=== PATIENT | male | born 1980 | race Caucasian/White ===

== ENCOUNTER 2017-07-12 09:48 | Emergency (ER) | payer OTHER ==
[~2017-07-12] VITALS: Ht 193 cm; Wt 110.0 kg
[~2017-07-12 09:48] MED LIST: ACET-1256 PO; PRLSR20 PO; Proair HFA INH; SNG10 PO
[2017-07-12 09:53] VITALS: TEMP 36.7; Ht 193 cm; Wt 110.0 kg
[2017-07-12] MEDS ORDERED: ACETAMINOPHEN 500 MG TAB PO STA (10:05)
[2017-07-12] MEDS ORDERED: LIDODERM (LIDOCAINE) PATCH 5% TD STA (10:05)
--- NOTE | 2017-07-12 10:19 | EMERGENCY ROOM VISIT NOTE ---
History Report prepared by Dianaibcate: Chris Morse Under the Supervision of: Dr. Dani Jones M.D. First contact with patient: 10:00 Chief Complaint: SHOULDER PAIN Stated Complaint: LEFT SHOULDER BLADE PAIN History of Present Illness The patient is a 37 year old male who presents to the Emergency Room with complaints of constant left shoulder blade pain for one week [employer]. The patient notes the pain worsens with movement. He has taken Tylenol for the pain, which has provided mild relief. He currently rates his pain a 7/10 in severity. He denies any recent injuries, fevers, chills, cough, congestion, nausea, vomiting , shortness of breath, and chest pain. He took Tylenol 12 hours ago. Source of History: patient Onset: one week [employer] Position: shoulder (left) Symptom Intensity: 7/10 Quality: other (shoulder blade pain) Timing: constant Modifying Factors (Relieving): tylenol Associated Symptoms: No fevers, No chills, No cough, No chest pain, No SOB, No nausea, No vomiting Note: He notes left shoulder blade pain. He denies any recent injuries and congestion. Review of Systems See HPI for pertinent positives and negatives. A total of ten systems were reviewed and were otherwise negative. Past Medical & Surgical No pertinent past medical history or past surgical history reported. Family History No pertinent family history reported. Social History Smoking Status: Never Smoker Alcohol Use: none Drug Use: none Marital Status: Housing Status: lives with family Occupation Status: employed Current/Historical Medications Scheduled Cetirizine Hcl (Zyrtec), 10 MG PO DAILY Montelukast Sod (Montelukast Sodium), 10 MG PO DAILY Scheduled PRN Lidocaine (Lidoderm Patch 5%), 1 PATCH TD DAILY PRN for Pain Allergies Coded Allergies: Penicillins (Verified Allergy, Intermediate, RASH, 07/12/17) Aspirin (Verified Adverse Reaction, Unknown, Bleeding, 07/12/17) Physical Exam Vital Signs Date Time Temp Pulse Resp B/P (MAP) Pulse Ox O2 Delivery O2 Flow Rate FiO2 07/12/17 10:58 82 16 132/79 96 07/12/17 09:53 36.7 75 18 133/92 95 Room Air Physical Exam GENERAL: Awake, alert, well-appearing, in no distress HENT: Normocephalic, atraumatic. Oropharynx unremarkable. EYES: Normal conjunctiva. Sclera non-icteric. NECK: Supple. No nuchal rigidity. FROM. No JVD. RESPIRATORY: Clear to auscultation. CARDIAC: Regular rate, normal rhythm. Extremities warm and well perfused. Pulses equal. ABDOMEN: Soft, non-distended. No tenderness to palpation. No rebound or guarding. No masses. RECTAL: Deferred. MUSCULOSKELETAL: Chest examination reveals no tenderness. The back is symmetrical on inspection without obvious abnormality. There is no CVA tenderness to palpation. No joint edema. Mild tenderness to lateral aspect of left scapula with palpable muscle spasm extending to left deltoid. FROM actively and passively. LOWER EXTREMITIES: Calves are equal size bilaterally and non-tender. No edema. No discoloration. NEURO: Normal sensorium. No sensory or motor deficits noted. SKIN: No rash or jaundice noted. Medical Decision & Procedures ER Provider Diagnostic Interpretation: Radiology results as stated below per my review and radiologist interpretation: L SCAPULA HISTORY: 37 years-old Male pain acute left shoulder pain without reported trauma COMPARISON: None available TECHNIQUE: 2 views of the left scapula FINDINGS: No acute fracture or dislocation. Mild degenerative changes of the left AC joint. Imaged lung dalton appear clear. No opaque foreign body. IMPRESSION: No acute fracture or dislocation. The above report was generated using voice recognition software. It may contain grammatical, syntax or spelling errors. Electronically signed by: Leno Grimm M.D. 07/12/2017 10:36 AM Dictated Date/Time: 07/12/2017 10:35 AM Medications Administered Medications (Trade) Dose Ordered Sig/Rene Route Start Time Stop Time Status Last Admin Dose Admin Acetaminophen (Tylenol Tab) 1,000 mg NOW STAT PO 07/12/17 10:05 07/12/17 10:10 DC 07/12/17 10:30 1,000 MG Lidocaine (Lidoderm Patch 5%) 1 patch NOW STAT TD 07/12/17 10:05 07/12/17 10:10 DC 07/12/17 10:30 1 PATCH ED Course 1002: The patient was evaluated in room A12. A complete history and physical exam was performed. 1049: I reassessed the patient at this time. He is feeling better and resting comfortably. I discussed the results and treatment plan with the patient. I answered all pertaining questions that he had. He expressed understanding and verbalized agreement. The patient will be discharged home. Medical Decision I reviewed the patient's past medical history, medications, and the nursing notes as described above. The patient's presentation and history were concerning for fracture, dislocation , musculoskeletal strain, and ligamentous injury. The patient is a 37-year-old gentleman who presents [facility] department with right scapular pain per hpi. On arrival patient is well-appearing, afebrile with stable vital signs. On exam the patient has mild tenderness to the lateral aspect of the left scapula with palpable muscle spasm extending to the left deltoid. Full range of motion intact. PMS intact. X-ray unremarkable. It is most consistent with muscular strain. Plan for analgesia and PCP follow-up. Findings and plan for follow-up reviewed with patient. Patient agreeable and d/c 'd per discharge instructions. Impression Primary Impression: Pain of left scapula Additional Impression: Muscle strain Scribe Attestation The scribe's documentation has been prepared under my direction and personally reviewed by me in its entirety. I confirm that the note above accurately reflects all work, treatment, procedures, and medical decision making performed by me. Departure Information Dispostion Home / Self-Care Prescriptions Lidocaine (Lidoderm Patch 5%) 1 Ea Tdsy 1 PATCH TD DAILY Y for Pain for 7 Days, #7 PATCH 12 hours on and 12 hours off. Prov: Dani Jones M.D. 07/12/17 Referrals Christiano Lazcano M.D. (PCP) Forms HOME CARE DOCUMENTATION FORM, IMPORTANT VISIT INFORMATION Patient Instructions ED Muscle Aching, ED Spasm Muscle, My [facility] Additional Instructions Please follow up with your primary care physician in the next 1-3 days for re- evaluation. You likely have a muscle strain. Otherwise, your exam and xray did not show signs of an emergent condition at this time. Acetaminophen and lidoderm patch for pain as needed. Heating pad for 20 minute intervals throughout the day for muscle relaxation and additional pain relief. Return to the emergency department for worsening symptoms as described in the accompanying instructions. Problem Qualifiers
[2017-07-12] MEDS ORDERED: CETI10TA10 PO (10:34)
--- NOTE | 2017-07-12 10:38 | DIAGNOSTIC IMAGING REPORT ---
L SCAPULA HISTORY: 37 years-old Male pain acute left shoulder pain without reported trauma COMPARISON: None available TECHNIQUE: 2 views of the left scapula FINDINGS: No acute fracture or dislocation. Mild degenerative changes of the left AC joint. Imaged lung dalton appear clear. No opaque foreign body. IMPRESSION: No acute fracture or dislocation. The above report was generated using voice recognition software. It may contain grammatical, syntax or spelling errors. Electronically signed by: Leno Grimm M.D. 07/12/2017 10:36 AM Dictated Date/Time: 07/12/2017 10:35 AM
[2017-07-12] MEDS ORDERED: NF656 TD (10:49)
[2017-07-12 10:58] VITALS: BP 132/79; PULSE 82; O2SAT 96
== END 2017-07-12 10:59 | disposition home or self-care (01) ==
LOC: C.EDB 09:50 → C.EDA 10:59
DX: M19.012 Primary osteoarthritis, left shoulder (principal); S46.912A Strain of unspecified muscle, fascia and tendon at shoulder and upper arm level, left arm, initial encounter; X58.XXXA Exposure to other specified factors, initial encounter

== ENCOUNTER 2017-10-13 16:15 | Emergency (ER) | payer OTHER ==
[~2017-10-13] VITALS: Ht 194.3 cm; Wt 110.5 kg
[~2017-10-13 16:15] MED LIST changes: -ACET-1256 PO; +CETI10TA10 PO; +NF656 TD; -PRLSR20 PO; -Proair HFA INH; -SNG10 PO
[2017-10-13 16:33] VITALS: TEMP 36.9; Ht 194.3 cm; Wt 110.5 kg
[2017-10-13] MEDS ORDERED: OPTIRAY 320 IV PRN (18:15)
[2017-10-13] MEDS ORDERED: VNTHFA/IN INH (18:31)
[2017-10-13] MEDS ORDERED: ACET-1256 PO (18:31)
[2017-10-13 19:06] LABS: BASO % 0.5 %; BASO ABS # 0.04 K/uL (0-0.2); EOS % 1.7 %; EOS ABS # 0.14 K/uL (0-0.5); HEMOGLOBIN 13.6 g/dL (14.0-18.0); IG# 0.01 K/uL (0.00-0.02); LYMPH % 42.3 %; LYMPH ABS # 3.48 K/uL (1.2-3.4); MEAN CELL VOLUME 90.1 fL (80-100); MEAN CORPUSCULAR HEMOGLOBIN 30.6 pg (25-34); MEAN PLATELET VOLUME 9.6 fL (7.4-10.4); MONO % 8.2 %; MONO ABS # 0.67 K/uL (0.11-0.59); NEUT % 47.2 %; NEUT ABS # 3.88 K/uL (1.4-6.5); PLATELET COUNT 176 K/uL (130-400); RED CELL DISTRIBUTION WIDTH CV 13.7 % (11.5-14.5); WHITE BLOOD COUNT 8.22 K/uL (4.8-10.8)
[2017-10-13 19:33] LABS: ALBUMIN 4.1 gm/dl (3.4-5.0); ALT/SGPT 23 U/L (12-78); BLOOD UREA NITROGEN 16 mg/dl (7-18); CARBON DIOXIDE 26 mmol/L (21-32); CREATININE 0.98 mg/dl (0.60-1.40); GLUCOSE 84 mg/dl (70-99); LIPASE 145 U/L (73-393); POTASSIUM 3.8 mmol/L (3.5-5.1); SODIUM 139 mmol/L (136-145)
[2017-10-13 19:36] LABS: ALKALINE PHOSPHATASE 65 U/L (45-117); AST/SGOT 17 U/L (15-37); TOTAL PROTEIN 7.7 gm/dl (6.4-8.2)
--- NOTE | 2017-10-13 20:24 | DIAGNOSTIC IMAGING REPORT ---
CT OF THE ABDOMEN AND PELVIS WITH CONTRAST CLINICAL HISTORY: Perirectal erythema and pain. COMPARISON STUDY: None. TECHNIQUE: Following IV administration of 116 mL of Optiray-320, axial images of the abdomen and pelvis were obtained from the lung bases to the proximal femurs. Images were reviewed in the axial, sagittal, and coronal planes. IV contrast was administered without complication. A dose lowering technique was utilized adhering to the principles of ALARA. CT DOSE: 531.96 mGy.cm FINDINGS: A subcentimeter hypodense right hepatic dome lesion is too small characterize but is likely benign. The spleen, adrenal glands, left kidney and pancreas are normal. A few right renal calculi measure up to 4 mm. There are no ureteral calculi and there is no hydronephrosis. A few nodular densities within the right lower lobe measure up to 5 mm and are shown on image 18 of 531. There is no evidence for a bowel obstruction. Caliber and wall thickness of small and large bowel are normal. The appendix is normal. There is no perirectal or perianal abscess. There is no adjacent infiltration. Note is made of a 1.2 x 0.5 cm cystic midline focus with thin the prostate gland. No suspicious osseous lesions are present. IMPRESSION: 1. No acute process within the abdomen or pelvis. 2. No perirectal/perianal abscess. 3. Right-sided nephrolithiasis. No ureteral calculi or hydronephrosis. 4. 1.2 x 0.5 cm cystic midline focus within the prostate gland which is nonspecific but may reflect a prostatic utricle cyst and is of doubtful significance. Electronically signed by: Rodney Baer M.D. 10/13/2017 8:22 PM Dictated Date/Time: 10/13/2017 8:08 PM
[2017-10-13] MEDS ORDERED: MAGNESIUM CITRATE 296 ML/BTL PO ONE (21:15)
[2017-10-13 21:17] VITALS: BP 140/87; PULSE 71; O2SAT 98
--- NOTE | 2017-10-13 21:18 | EMERGENCY ROOM VISIT NOTE ---
History First contact with patient: 17:55 Chief Complaint: CONSTIPATION Stated Complaint: CANT URINATE Nursing Triage Summary: Pt states he has a painful hemorroid, pain started last night, unable to have a BM due to the pain. History of Present Illness The patient is a 37 year old male who presents to the Emergency Room with complaints of a painful hemorrhoid and inability to have bowel movements because of the pain. The patient believes that he has not had a bowel movement for the past week. He has not tried any OTC medications or stool softeners. The patient reports a prior history of hemorrhoids. He has had an upper endoscopy, but never had a colonoscopy performed. His family doctor suggested that he have one performed, but the patient has not schedule an appointment with gastroenterology. The patient currently denies any difficulty with urination, bloody stools, significant abdominal pain, fevers or chills. He rates his discomfort a 6 out of 10 on my exam. Review of Systems HEENT: Denies dizziness, visual problems, hearing loss, tinnitus. Denies difficulty swallowing or oral lesions. PULMONARY: Denies cough, shortness of breath, sputum production or hemoptysis. CARDIOVASCULAR: Denies chest pain, palpitations, dyspnea on exertion, orthopnea or peripheral edema. GASTROINTESTINAL: Denies diarrhea, nausea, vomiting, or significant abdominal pain. Patient does report a prior history of hemorrhoids. GENITOURINARY: Denies dysuria, frequency, urgency or nocturia. NEUROLOGIC: Denies history of epilepsy, CVA, TIA or chronic headaches. MUSCULOSKELETAL: Denies history of joint tenderness/swelling. SKIN: Denies rashes or lesions. PSYCHIATRIC: Denies history of depression or mental illness. ENDOCRINE: Denies history of diabetes or thyroid disorders. Past Medical/Surgical History Medical Problems: (1) No significant past medical history Surgical Problems: (1) No history of previous surgery Family History Unremarkable Social History Smoking Status: Never Smoker Alcohol Use: none Drug Use: none Marital Status: Housing Status: lives with family Occupation Status: employed Current/Historical Medications Scheduled Cetirizine Hcl (Zyrtec), 10 MG PO DAILY Montelukast Sod (Montelukast Sodium), 10 MG PO DAILY Scheduled PRN Acetaminophen (Tylenol), 1,000 MG PO Q6H PRN for Pain Albuterol Hfa (Ventolin Hfa), 2 PUFFS INH Q4H PRN for Cough/SOB/Wheeze Physical Exam Vital Signs Date Time Temp Pulse Resp B/P (MAP) Pulse Ox O2 Delivery O2 Flow Rate FiO2 10/13/17 20:36 68 20 136/94 97 Room Air 10/13/17 18:42 74 18 128/92 96 Room Air 10/13/17 16:33 36.9 85 18 150/85 97 Room Air Physical Exam CONSTITUTIONAL: Healthy and well nourished. Alert and oriented X 3 with positive affect. Patient does not appear in any acute distress on my exam. HEENT: Normocephalic, atraumatic. Pupils equal, round and reactive. No scleral icterus or conjunctival pallor. NECK: Full active range of motion without discomfort. No JVD or carotid bruits. RESPIRATORY: Clear to auscultation bilaterally with no wheezing, crackles, rhonchi or stridor. CARDIOVASCULAR: Regular rate and rhythm with no murmurs, rubs or gallops. GASTROINTESTINAL: Bowel sounds present in all quadrants. Abdomen is soft and nontender to palpation. Examination of the rectum shows a posterior external hemorrhoid that is flaccid and normal skin colored. There is no perianal erythema, but the patient does have tenderness to palpation about this region. Digital rectal exam was deferred because of patient discomfort. MUSCULOSKELETAL: Full range of motion of all joints without discomfort. INTEGUMENTARY: No rash or other significant dermatologic conditions noted. NEUROLOGIC: No focal neurologic deficits noted. Medical Decision & Procedures ER Provider Diagnostic Interpretation: CT of the abdomen and pelvis with IV contrast does not show any obvious perirectal abscesses. Other incidental findings are noted in the following radiologist report: CT OF THE ABDOMEN AND PELVIS WITH CONTRAST CLINICAL HISTORY: Perirectal erythema and pain. COMPARISON STUDY: None. TECHNIQUE: Following IV administration of 116 mL of Optiray-320, axial images of the abdomen and pelvis were obtained from the lung bases to the proximal femurs. Images were reviewed in the axial, sagittal, and coronal planes. IV contrast was administered without complication. A dose lowering technique was utilized adhering to the principles of ALARA. CT DOSE: 531.96 mGy.cm FINDINGS: A subcentimeter hypodense right hepatic dome lesion is too small characterize but is likely benign. The spleen, adrenal glands, left kidney and pancreas are normal. A few right renal calculi measure up to 4 mm. There are no ureteral calculi and there is no hydronephrosis. A few nodular densities within the right lower lobe measure up to 5 mm and are shown on image 18 of 531. There is no evidence for a bowel obstruction. Caliber and wall thickness of small and large bowel are normal. The appendix is normal. There is no perirectal or perianal abscess. There is no adjacent infiltration. Note is made of a 1.2 x 0.5 cm cystic midline focus with thin the prostate gland. No suspicious osseous lesions are present. IMPRESSION: 1. No acute process within the abdomen or pelvis. 2. No perirectal/perianal abscess. 3. Right-sided nephrolithiasis. No ureteral calculi or hydronephrosis. 4. 1.2 x 0.5 cm cystic midline focus within the prostate gland which is nonspecific but may reflect a prostatic utricle cyst and is of doubtful significance. Laboratory Results 10/13/17 18:45 Red Blood Count 4.44, Mean Corpuscular Volume 90.1, Mean Corpuscular Hemoglobin 30.6, Mean Corpuscular Hemoglobin Concent 34.0, Mean Platelet Volume 9.6, Neutrophils (%) (Auto) 47.2, Lymphocytes (%) (Auto) 42.3, Monocytes (%) (Auto) 8.2, Eosinophils (%) (Auto) 1.7, Basophils (%) (Auto) 0.5, Neutrophils # (Auto) 3.88, Lymphocytes # (Auto) 3.48, Monocytes # (Auto) 0.67, Eosinophils # (Auto) 0.14, Basophils # (Auto) 0.04 10/13/17 18:45 Test 10/13/17 18:45 10/13/17 18:54 White Blood Count 8.22 K/uL (4.8-10.8) Red Blood Count 4.44 M/uL (4.7-6.1) Hemoglobin 13.6 g/dL (14.0-18.0) Hematocrit 40.0 % (42-52) Mean Corpuscular Volume 90.1 fL (80-100) Mean Corpuscular Hemoglobin 30.6 pg (25-34) Mean Corpuscular Hemoglobin Concent 34.0 g/dl (32-36) Platelet Count 176 K/uL (130-400) Mean Platelet Volume 9.6 fL (7.4-10.4) Neutrophils (%) (Auto) 47.2 % Lymphocytes (%) (Auto) 42.3 % Monocytes (%) (Auto) 8.2 % Eosinophils (%) (Auto) 1.7 % Basophils (%) (Auto) 0.5 % Neutrophils # (Auto) 3.88 K/uL (1.4-6.5) Lymphocytes # (Auto) 3.48 K/uL (1.2-3.4) Monocytes # (Auto) 0.67 K/uL (0.11-0.59) Eosinophils # (Auto) 0.14 K/uL (0-0.5) Basophils # (Auto) 0.04 K/uL (0-0.2) RDW Standard Deviation 45.0 fL (36.4-46.3) RDW Coefficient of Variation 13.7 % (11.5-14.5) Immature Granulocyte % (Auto) 0.1 % Immature Granulocyte # (Auto) 0.01 K/uL (0.00-0.02) Anion Gap 7.0 mmol/L (3-11) Est Creatinine Clear Calc Drug Dose 141.5 ml/min Estimated GFR () 113.7 Estimated GFR (Non- 98.1 BUN/Creatinine Ratio 16.7 (10-20) Calcium Level 9.0 mg/dl (8.5-10.1) Total Bilirubin 0.2 mg/dl (0.2-1) Direct Bilirubin < 0.1 mg/dl (0-0.2) Aspartate Amino Transf (AST/SGOT) 17 U/L (15-37) Alanine Aminotransferase (ALT/SGPT) 23 U/L (12-78) Alkaline Phosphatase 65 U/L (45-117) Total Protein 7.7 gm/dl (6.4-8.2) Albumin 4.1 gm/dl (3.4-5.0) Lipase 145 U/L (73-393) Bedside Lactic Acid Venous 0.56 mmol/L (0.90-1.70) The above labs were reviewed and are grossly normal. Bedside lactate is normal. ED Course Patient history and physical exam were performed. Nurse's notes were reviewed. Vital signs were reviewed and were normal. The patient refused any analgesics. IV access was established, and labs were drawn. Labs were reviewed and were normal. CT of the abdomen and pelvis with IV contrast does not show any evidence for perianal/rectal abscess. Other incidental findings, including pulmonary nodules, right renal calculi and small prostatic cyst. It is noted that the patient does have moderate stool on drug safety coordinator films. No obstruction is noted on CT scan. At this point, I did suggest that the patient follow-up with [facility] gastroenterology for further reevaluation. The patient was dispensed a bottle of magnesium citrate to purge his bowel. He was instructed to return to the emergency department for any progressively worsening pain, fever, rectal bleeding or other concerning symptoms. The patient was happy with plan of care, and voiced understanding of all discharge instructions. Medical Decision Patient presents with complaint of constipation and rectal pain. He is also concerned about hemorrhoids. Although the patient does have an external hemorrhoid, it does not appear to be thrombosed. CT scan does not show any evidence for perirectal or perianal abscess. The patient is afebrile and has no leukocytosis to suggest other significant infectious etiologies. Abdomen is benign on exam. Medication Reconcilliation Current Medication List: was personally reviewed by me Blood Pressure Screening Patient's blood pressure: Normal blood pressure Impression Primary Impression: Rectal pain Additional Impression: Constipation Departure Information Referrals Christiano Lazcano M.D. (PCP) Patient Instructions My [facility] Problem Qualifiers Additional Impression: Constipation Constipation type: unspecified constipation type Qualified Codes: K59.00 - Constipation, unspecified
[2017-10-13] MEDS ORDERED: SNG10 PO (21:57)
[2017-10-14] MEDS ORDERED: DOCU-94 PO (12:52)
== END 2017-10-13 21:18 | disposition home or self-care (01) ==
LOC: C.EDB 16:16 → C.EDC 21:18
DX: K59.00 Constipation, unspecified (principal); R91.8 Other nonspecific abnormal finding of lung field; N20.0 Calculus of kidney; N42.83 Cyst of prostate

== ENCOUNTER 2017-10-14 11:32 | Emergency (ER) | payer OTHER ==
[~2017-10-14] VITALS: Ht 194.3 cm; Wt 110.8 kg
[~2017-10-14 11:32] MED LIST changes: +ACET-1256 PO; +SNG10 PO; +VNTHFA/IN INH
[2017-10-14 11:37] VITALS: TEMP 36.7; Ht 194.3 cm; Wt 110.8 kg
--- NOTE | 2017-10-14 12:44 | DIAGNOSTIC IMAGING REPORT ---
KUB HISTORY: Acute rectal bleeding with constipation Constipation COMPARISON: CT 10/13/2017. FINDINGS: The bowel gas pattern is non-obstructive. No evidence of constipation. There is no organomegaly. Surgical clips project over the upper scrotum suggesting prior vasectomy. No renal calculi. No ureteral calculi. No pneumoperitoneum or pneumatosis. No fracture. IMPRESSION: Nonobstructive bowel gas pattern. Electronically signed by: Leno Grimm M.D. 10/14/2017 12:43 PM Dictated Date/Time: 10/14/2017 12:41 PM
--- NOTE | 2017-10-14 12:46 | EMERGENCY ROOM VISIT NOTE ---
ED Visit Note First contact with patient: 12:45 I have seen and examined this patient with José Troy and generally agree with the treatment plan as discussed. Current/Historical Medications Scheduled Cetirizine Hcl (Zyrtec), 10 MG PO DAILY Montelukast Sod (Montelukast Sodium), 10 MG PO DAILY Scheduled PRN Acetaminophen (Tylenol), 1,000 MG PO Q6H PRN for Pain Albuterol Hfa (Ventolin Hfa), 2 PUFFS INH Q4H PRN for Cough/SOB/Wheeze Allergies Coded Allergies: Penicillins (Verified Allergy, Intermediate, RASH, 10/14/17) Aspirin (Verified Adverse Reaction, Unknown, Bleeding, 10/14/17) Vital Signs Date Time Temp Pulse Resp B/P (MAP) Pulse Ox O2 Delivery O2 Flow Rate FiO2 10/14/17 11:37 36.7 84 17 131/90 96 Room Air Departure Information Referrals Christiano Lazcano M.D. (PCP) Patient Instructions My [facility]
[2017-10-14] MEDS ORDERED: HYDROCORTISONE ACETATE 25 MG SUPP PR STA (12:49)
--- NOTE | 2017-10-14 12:50 | EMERGENCY ROOM VISIT NOTE ---
History First contact with patient: 11:45 Chief Complaint: RECTAL BLEEDING Stated Complaint: RECTUM BLEEDING Nursing Triage Summary: Ambulates to room. Reports was seen at [facility] ED lastnight for rectal pain. Given Mg Citrate for no BM x 1 week. Pt reports he took the medication this am and went into the BR later and produced no BM, just daniel blood. History of Present Illness The patient is a 37 year old male who presents to the Emergency Room via private vehicle accompanied by female with complaints of "rectal bleeding". The patient states he was seen here yesterday and given magnesium citrate. He has not had a bowel movement 6 days. He states that while at home he had a bowel movement this morning that was bright red blood therefore prompting his visit here today. He notes pain in the rectal region of which he rates as a 9/ 10. He states that he does not feel that he had a bowel movement. He has a GI follow-up scheduled for the beginning of November and a family doctor appointment next week. Review of Systems A complete 10-point Review of Systems was discussed with the patient, with pertinent positives and negatives listed in the History of Present Illness. All remaining Review of Systems questions can be considered negative unless otherwise specified. Past Medical/Surgical History Medical Problems: (1) No significant past medical history Surgical Problems: (1) No history of previous surgery Social History Smoking Status: Never Smoker Alcohol Use: none Drug Use: none Marital Status: Housing Status: lives with family Occupation Status: employed Current/Historical Medications Scheduled Cetirizine Hcl (Zyrtec), 10 MG PO DAILY Docusate Sodium (Colace), 1 CAP PO BID Montelukast Sod (Montelukast Sodium), 10 MG PO DAILY Scheduled PRN Acetaminophen (Tylenol), 1,000 MG PO Q6H PRN for Pain Albuterol Hfa (Ventolin Hfa), 2 PUFFS INH Q4H PRN for Cough/SOB/Wheeze Physical Exam Vital Signs Date Time Temp Pulse Resp B/P (MAP) Pulse Ox O2 Delivery O2 Flow Rate FiO2 10/14/17 11:37 36.7 84 17 131/90 96 Room Air Physical Exam VITAL SIGNS - Vital signs and nursing notes were reviewed. Stable. GENERAL -37-year-old male appearing his stated age who is in no acute distress. Communicates well with provider and answers questions appropriately. SKIN - Without rashes. Please refer to rectal examination for findings. HEAD - NC/AT. EYES - Sclera anicteric. MOUTH/OROPHARYNX - Without perioral cyanosis. EXTREMITIES: No peripheral cyanosis. Rectal: There is evidence of a ruptured hemorrhoid at the 9 o'clock position when the patient is prone. It is only using a small amount of blood. No hemorrhaging. No other rectal finding. Rectal exam is unremarkable. No internal hemorrhoids appreciated. No masses. PSYCH - Pt is very pleasant and interacts well with examiner. Medical Decision & Procedures ER Provider Diagnostic Interpretation: KUB HISTORY: Acute rectal bleeding with constipation Constipation COMPARISON: CT 10/13/2017. FINDINGS: The bowel gas pattern is non-obstructive. No evidence of constipation. There is no organomegaly. Surgical clips project over the upper scrotum suggesting prior vasectomy. No renal calculi. No ureteral calculi. No pneumoperitoneum or pneumatosis. No fracture. IMPRESSION: Nonobstructive bowel gas pattern. Electronically signed by: Leno Grimm M.D. 10/14/2017 12:43 PM Dictated Date/Time: 10/14/2017 12:41 PM Medical Decision Patient was seen and evaluated as above. He presents to us today with rectal pain and bright red rectal bleeding. He was seen here yesterday and had a CAT scan performed and was diagnosed with a hemorrhoid and constipation. He was sent home with magnesium citrate. He consumed the entire bottle of magnesium citrate. Review was performed of nursing notes and vital signs. After obtaining a thorough history and physical examination the above work up was performed. KUB was performed. Nonobstructive bowel gas pattern. No constipation. I suspect that the magnesium citrate likely liquefied the stool and mixed with the right red blood from the ruptured hemorrhoid which is visible on exam. There is no hemorrhaging. He was given Anusol suppository and is to use Colace for stool softener. He is to follow with the family doctor as well as GI as scheduled. He is to return with worsening. The patient was educated upon management, had questions answered prior to discharge, and was discharged home in good condition. Case was discussed with the attending physician who also personally evaluate the patient. Imaging as interpreted by myself and the radiologist revealed no constipation, with radiologist interpretation as above. I agree with the radiologist's findings as based upon my independent interpretation. I attest that I have personally reviewed the patient medication list. I attest that I have reviewed the patient's blood pressure and it was found to be elevated likely secondary to situation, he is to follow-up with his family doctor next week In the evaluation and treatment of this patient the following differential diagnoses were entertained: Hemorrhoid, rectal bleeding, fissure, obstruction, mass, among others. Impression Primary Impression: Hemorrhoid Departure Information Dispostion Home / Self-Care Condition GOOD Prescriptions Docusate Sodium (COLACE) 100 Mg Cap 1 CAP PO BID for 15 Days, #30 CAP Prov: José Troy PA-C 10/14/17 Referrals Christiano Lazcano M.D. (PCP) Patient Instructions My [facility] Additional Instructions He was seen in the emergency department for a hemorrhoid. Colace stool softner every 12 hours for 2 weeks. Please stay well hydrated and eat soft foods. The magnesium citrate which you drank seem to have cleared out your stool however your hemorrhoid has ruptured. At this time there is only minimal bleeding. Please keep the gauze or bandage to the rectal area until bleeding stops. You may need to do this for the next few days. Please do warm baths. This will help the area heal. Please keep your follow-up with your family doctor and gastroenterology. Please return with any new/concerning symptoms.
[2017-10-14] MEDS ORDERED: DOCU-94 PO (12:52)
[2017-10-14 13:30] VITALS: BP 149/93; PULSE 63; O2SAT 95
== END 2017-10-14 13:20 | disposition home or self-care (01) ==
LOC: C.EDB 11:33 → C.EDC 13:20
DX: K64.9 Unspecified hemorrhoids (principal)